=== PATIENT | male | born 1985 | race African-American/Black ===

== ENCOUNTER 2017-08-22 16:43 | Emergency (ER) | payer BC ==
--- NOTE | 2017-08-22 17:17 | EDM.PDOC ---
ED HPI GENERAL MEDICAL PROBLEM - General Chief Complaint: ENT Problem Stated Complaint: left eye pain/twitching Time Seen by Provider: 08/22/17 17:00 Source of Information: Reports: Patient History Limitations: Reports: No Limitations - History of Present Illness INITIAL COMMENTS - FREE TEXT/NARRATIVE: Patient is from [facility] [place] was at home got hit with a door on the left side of the face states that he went to bed woke up with swelling in the left side of the face he had had a previous injury about a year ago he iced it up 4 hours swelling is down significantly but did admit to left eye twitching and headaches that came in waves. Patient admits to nausea in the morning was unable to throw up Onset: Sudden Duration: Hour(s):, Improving Location: Reports: Face (Left cinematic) Quality: Reports: Ache, Sharp Severity: Moderate Improves with: Reports: Cold Therapy Worsens with: Reports: Movement Context: Reports: Trauma Treatments EVENT PRODUCER: Reports: Acetaminophen - Related Data Allergies Allergy/AdvReac Type Severity Reaction Status Date / Time No Known Allergies Allergy Verified 08/22/17 17:15 Home Meds: Home Meds . [No Known Home Meds] 08/22/17 [History] ED ROS GENERAL - Review of Systems Review Of Systems: See Below Constitutional: Reports: No Symptoms HEENT: Reports: No Symptoms Respiratory: Reports: No Symptoms Cardiovascular: Reports: No Symptoms Endocrine: Reports: No Symptoms GI/Abdominal: Reports: No Symptoms : Reports: No Symptoms Musculoskeletal: Reports: No Symptoms Skin: Reports: No Symptoms Neurological: Reports: No Symptoms Psychiatric: Reports: No Symptoms Hematologic/Lymphatic: Reports: No Symptoms Immunologic: Reports: No Symptoms ED EXAM GENERAL W FULL EYE - Physical Exam Exam: See Below Eye Exam: Left Eye: Nystagmus, Bilateral Eye: PERRL Visual Acuity (R) 20/: 20 (minus1) Visual Acuity (L) 20/: 20 (minus2) With Correction: No Pupillary Size: Bilateral: 2 mm Pupillary Reaction: Right: Brisk Ears: Normal External Exam, Normal Canal, Hearing Grossly Normal, Normal TMs Nose: Normal Inspection, Normal Mucosa, No Blood Throat/Mouth: Normal Inspection, Normal Lips, Normal Teeth, Normal Gums, Normal Oropharynx, Normal Voice, No Airway Compromise Head: Normocephalic, Facial Swelling (Left sacral atraumatic area), Facial Tenderness (Left single Medicare) Neck: Normal Inspection, Supple, Non-Tender, Full Range of Motion Respiratory/Chest: No Respiratory Distress, Lungs Clear, Normal Breath Sounds, No Accessory Muscle Use, Chest Non-Tender Cardiovascular: Normal Peripheral Pulses, Regular Rate, Rhythm, No Edema, No Gallop, No JVD, No Murmur, No Rub GI/Abdominal: Normal Bowel Sounds, Soft, Non-Tender, No Organomegaly, No Distention, No Abnormal Bruit, No Mass (Male) Exam: Deferred Rectal (Males) Exam: Deferred Back Exam: Normal Inspection, Full Range of Motion, NT Extremities: Normal Inspection, Normal Range of Motion, Non-Tender, Normal Capillary Refill, No Pedal Edema Neurological: Alert, Oriented, CN II-XII Intact, Normal Cognition, Normal Gait, Normal Reflexes, No Motor/Sensory Deficits Psychiatric: Normal Affect, Normal Mood Skin Exam: Warm, Dry, Intact, Normal Color, No Rash Departure - Departure Time of Disposition: 18:10 Disposition: Home, Self-Care 01 Clinical Impression: Soft tissue swelling at temporomandibular joint - Discharge Information Referrals: PCP,Unknown [Primary Care Provider] - Care Plan Goals: CT of the face revealed no facute fracture soft tissue swelling patient will be sent home he may return to work tomorrow he should ice the area tonight 20 minutes on 20 minutes off continued concerns he should go to see the pattern wheel maker in town there are no entrapment syndrome noted at this time
== END 2017-08-22 18:30 | disposition home or self-care (01) ==
LOC: LL.ED 16:43
DX: R22.0 Localized swelling, mass and lump, head (principal)
CPT/HCPCS: 70486; 99284